=== PATIENT | female | born 1985 | race Caucasian/White ===

== ENCOUNTER → 2018-04-03 | Outpatient (CLI) | payer MEDICAID ==
[2018-04-03 13:01] LABS: Basophils % (A) 1 %; Eosinophils # (A) 0.1 k/uL (0-0.7); Eosinophils % (A) 1 %; HGB 12.9 gm/dL (11.4-16.0); Lymphocytes # (A) 2.4 k/uL (1.0-4.8); Lymphocytes % (A) 39 %; MCH 27.5 pg (25.0-35.0); MCHC 31.4 g/dL (31.0-37.0); MCV 87.5 fL (80.0-100.0); Mean Platelet Volume 6.5; Monocytes # (A) 0.3 k/uL (0-1.0); Monocytes % (A) 5 %; Neutrophils # (A) 3.2 k/uL (1.3-7.7); Neutrophils % (A) 52 %; Platelet Count 326 k/uL (150-450); RBC 4.68 m/uL (3.80-5.40); RDW 13.6 % (11.5-15.5); WBC 6.1 k/uL (3.8-10.6)
[2018-04-03 16:43] LABS: Vitamin D 25 Hydroxy 39.5 ng/mL (30.0-100.0)
[2018-04-03 16:47] LABS: Albumin 4.4 g/dL (3.80-4.90); Albumin/Globulin Ratio 1.91 (1.60-3.17); Anion Gap 8.6 mmol/L (4.00-12.00); Calcium 9.7 mg/dL (8.7-10.3); Carbon Dioxide 25.4 mmol/L (21.6-31.8); Globulin 2.3 g/dL (1.6-3.3); LDL Cholesterol,Calculated 81.8 mg/dL (0.0-131.0); Potassium 4.4 mmol/L (3.5-5.5); Total Bilirubin 0.4 mg/dL (0.2-1.2); Total Protein 6.7 g/dL (6.2-8.2); VLDL Calculation 23.2 mg/dL (5.00-40.00)
[2018-04-03 17:12] LABS: EBV-VCA (IgG) >8.0 AI
== END | disposition home or self-care (01) ==
LOC: LABWHC1 12:03
PROVIDERS: ATTEND Nurse Practitioner Family
DX: F34.1 Dysthymic disorder (principal); E66.9 Obesity, unspecified; R53.81 Other malaise
CPT/HCPCS: 36415; 80053; 80061; 82306; 84439; 84443; 85025; 86644; 86645; 86663; 86664; 86665

== ENCOUNTER → 2019-09-12 | Outpatient (CLI) | payer OTHER ==
--- NOTE | 2019-09-13 14:37 | MR ---
EXAMINATION TYPE: MR knee RT wo con DATE OF EXAM: 09/12/2019 COMPARISON: Plain film 09/07/2019 HISTORY: Right Knee Pain and swelling, Had Fluid Drained on Thursday less pain now. TECHNIQUE: Multiplanar, multisequence imaging of the right knee is performed without IV contrast. FINDINGS: MEDIAL MENISCUS: Anterior and posterior horns are intact without tear. LATERAL MENISCUS: Anterior and posterior horns are intact without tear. CRUCIATE LIGAMENTS: The anterior and posterior cruciate ligaments are intact and unremarkable. COLLATERAL LIGAMENTS: The medial collateral ligament and lateral collateral ligament complex are inta ct and unremarkable. EXTENSOR MECHANISM: Visualized quadriceps and patellar tendons are intact. EFFUSION: Small suprapatellar joint effusion noted POPLITEAL CYST: No popliteal/torres cyst. TRICOMPARTMENT SPACES: There is joint space loss medial compartment CARTILAGE: Grade III chondromalacia BONE MARROW SIGNAL: Some reactive marrow signal change suspected along the proximal tibia medially OTHER: There is some subcutaneous edema along the prepatellar soft tissues, lateral patellar retinac ulum. IMPRESSION: Soft tissue swelling, edema. Osteoarthritis.
== END | disposition home or self-care (01) ==
LOC: RADMRIMAIN 07:32
PROVIDERS: ATTEND Orthopaedic Surgery
DX: M25.461 Effusion, right knee (principal); R60.0 Localized edema; M17.11 Unilateral primary osteoarthritis, right knee